=== PATIENT | male | born 1995 | race Caucasian/White ===

== ENCOUNTER 2024-05-06 14:08 | Outpatient (AMB) | payer OTHER, SELFPAY ==
--- NOTE | 2024-05-06 14:09 | MHC.OFFVIS ---
Vital Signs 05/06/24 14:10 Height 5 ft 7 in Weight 163 lb 5.8 oz BMI 25.6 BP 140/88 H Blood Pressure Location Lt brachial Position Standing Pulse 97 Pulse Source Pulse Oximeter Intake Visit Reasons: ankylosing spondylitis//RECORDS RECEIVED Intake Note: Patient present today for ankylosing spondylitis office visit. Web Operations Administrator Required: No Accompanied by: Self / Same As Patient Allergies No Known Allergies Allergy (Verified 05/06/24 14:15) Medication List - Last Reconciled 05/06/24 by Jj Saba MD acetaminophen (Tylenol) 325 mg PO QID PRN adalimumab (Humira(CF)) 40 mg subcut Q2W folic acid 1 mg PO DAILY methotrexate sodium 2.5 mg PO QWEEK multivitamin 1 tab PO DAILY HPI Comments Details: Since staring MTX in December 2023 his hand pain has resolved. He has been on humira weekly SC, which improved his stools - more solid. No new joint swelling, dactylitis or joint stiffness. No new back pain. IBD is controlled. [facility] Family History Mother Crohn disease Ankle ankylosis Father No problems noted. Review of Systems Const All systems reviewed & are unremarkable except as noted in HPI and below Physical Exam Vital Signs: Last Vital Signs Pulse 97 05/06/24 14:10 BP 140/88 H 05/06/24 14:10 BMI result Body Mass Index 25.6 Const General: healthy appearing and comfortable Resp Effort & Inspection: normal respiratory effort Auscultation: clear to auscultation bilaterally Cardio Rate: regular rate Rhythm: regular rhythm Heart sounds: S1 normal heart sound present and S2 normal heart sound present Extrem Other: Nontender joints. No synovitis. Good ROM of all joints. Good cervical spine ROM and lumbar flexion. Assessment & Plan Assessment & Plan (1) Ankylosing spondylitis: Comment: Controlled on current regimen Code(s): M45.9 - Ankylosing spondylitis of unspecified sites in spine Category: Medical Plan: Continue MTX weekly po Continue FA 1 mg daily Decrease frequency of Humira to every other week SC instead of weekly Labs for disease and drug monitoring due today. (2) Other dedicated intermodal truck driver (current) drug therapy: Code(s): Z79.899 - Other dedicated intermodal truck driver (current) drug therapy Category: Medical Plan: See above Orders: Orders Alanine Aminotransferase Today M45.9 - Ankylosing spondylitis of unspecified sites in spine, Z79.899 - Other group home (current) drug therapy C Reactive Protein Today M45.9 - Ankylosing spondylitis of unspecified sites in spine, Z79.899 - Other group home (current) drug therapy Creatinine Today M45.9 - Ankylosing spondylitis of unspecified sites in spine, Z79.899 - Other group home (current) drug therapy Aspartate Amino Transferase Today M45.9 - Ankylosing spondylitis of unspecified sites in spine, Z79.899 - Other dedicated intermodal truck driver (current) drug therapy Complete Blood Count Auto Diff Today M45.9 - Ankylosing spondylitis of unspecified sites in spine, Z79.899 - Other group home (current) drug therapy Erythrocyte Sedimentation Rate Today M45.9 - Ankylosing spondylitis of unspecified sites in spine, Z79.899 - Other group home (current) drug therapy Medications: New Humira(CF) (adalimumab) 40 mg (0.4 mL) subcut Q2W 2 ea 2RF NS Coding Level of Care Code Est Pt Level 4 (13204) Complex EM visit Add On G2211 Diagnoses Ankylosing spondylitis M45.9 Other dedicated intermodal truck driver (current) drug therapy Z79.890
[2024-05-06 14:10] VITALS: BP 140/88; PULSE 97; BMI 25.6
== END 2024-05-06 14:41 | disposition home or self-care (01) ==
PROVIDERS: PCP Internal Medicine; Visit Provider Internal Medicine Rheumatology
DX: M45.9 Ankylosing spondylitis of unspecified sites in spine (principal); Z79.899 Other long term (current) drug therapy
CPT/HCPCS: 99214; G2211

== ENCOUNTER → 2024-05-06 14:08 | Outpatient (BNVA) | payer OTHER, SELFPAY | PROVIDERS: PCP Internal Medicine; Visit Provider Internal Medicine Rheumatology | DX: M45.9 Ankylosing spondylitis of unspecified sites in spine (principal); Z79.899 Other long term (current) drug therapy | CPT/HCPCS: 99212 ==

== ENCOUNTER 2024-05-07 12:27 | Outpatient (REF) | payer OTHER, SELFPAY ==
[2024-05-07 13:06] LABS: MANUAL DIFF FLAG NO
[2024-05-07 13:11] LABS: Basophils Percent Auto 0.5 % (0-2); Eosinophils Percent Auto 0.3 % (0-4); Hematocrit 46.8 % (42.0-52.0); Hemoglobin 15.7 g/dl (14.0-18.0); Imm Gran Abs Auto 0.01 X10*3/uL (0.00-0.03); Imm Gran Pct Auto 0.2 % (0.0-0.4); Lymphocytes Absolute Auto 2.1 X10*3/uL (1.2-4.9); Lymphocytes Percent Auto 36.3 % (20-40); Mean Corpuscular HGB Conc 33.5 g/dl (31.0-36.0); Mean Corpuscular Hemoglobin 30.5 pg (27.0-33.0); Mean Corpuscular Volume 91.1 fL (80.0-98.0); Mean Platelet Volume 9.4 fL (9.4-12.4); Monocytes Absolute Auto 0.4 X10*3/uL (0.1-1.2); Monocytes Percent Auto 7.1 % (2-11); Neutrophils Absolute Auto 3.2 x10*3/uL (2.0-8.3); Neutrophils Percent Auto 55.6 % (45-73); Platelet Count 300 X10*3/uL (160-400); Red Blood Count 5.14 X10*6/uL (4.60-5.80); Red Cell Distribution Width 12.3 % (11.0-16.0); White Blood Count 5.8 X10*3/uL (4.8-10.8)
[2024-05-07 13:22] LABS: Alanine Aminotransferase 15 U/L (0-40); Aspartate Amino Transferase 20 U/L (5-37); C Reactive Protein < 0.10 mg/dL (< or = 0.50); Estimated Glomerular Filt Rate > 60
[2024-05-07 13:51] LABS: Erythrocyte Sedimentation Rate 2 MM/HR (0-15)
== END 2024-05-07 12:28 | disposition home or self-care (01) ==
LOC: HO.10HDL 12:27
PROVIDERS: Visit Provider Internal Medicine Rheumatology
DX: M45.9 Ankylosing spondylitis of unspecified sites in spine (principal); Z79.899 Other long term (current) drug therapy
CPT/HCPCS: 36415; 82565; 84450; 84460; 85025; 85652; 86140

== ENCOUNTER 2024-07-14 12:11 | Outpatient (REF) | payer OTHER, SELFPAY ==
--- OUTSIDE RECORDS SUMMARY | 2024-07-14 14:06 | XMS_ITS | Clinical Summary ---
Author Organization [facility] Address [address] [place] [address] Care Team Providers Care Residential Sales Consultant Name Role Phone Nikolai Hartmann MD Primary Care Provider [phone] Surgical History Surgery Date Site/Laterality Comments WISDOM TOOTH EXTRACTION PROCEDURE: HISTORICAL WISDOM TEETH EXTRACTION Medical History Medical History Date Comments Vitamin D deficiency 04/21/2019 DX:Vitamin D deficiency GERD (gastroesophageal reflu x disease) 04/21/2019 DX:GERD (gastroesophageal re flux disease) Anxiety 04/21/2019 DX:Anxiety Ankylosing spondylitis (CMS/HCC) 12/29/2018 DX:Ankylosing spondylitis (HCC) Bilateral temporomandibular joint pain 12/29/2018 DX:Bilateral temporomandibul ar joint pain Tinnitus 12/29/2018 DX:Tinnitus Marijuana use 04/21/2019 DX:Marijuana use ; COMMENT: 2018 Daily Family History Medical History Relation Name Comments Coronary artery disease Father Hype rtension, Hyperlipidemia, Hearing Loss Diabetes Mother Hypertension,Os teoarthritis-bilateral hip replacement in her 50 Colon cancer Neg Hx Crohn's disease Neg Hx Ulcerative colitis Neg Hx Relation Name Status Comments Father Mother Social History Tobacco Use Types Packs/Day Years Used Date Smoking Tobacco: Never Smokeless Tobacco: Never Alcohol Use Standard Drinks/Week Comments No 0 (1 standard drink = 0.6 oz pur e alcohol) Sex and Gender Information Value Date Recorded Sex Assigned at Not on file Gender Identity Not on file Sexual Orientation Not on file Obstetrics History Last Filed Vital Signs Vital Sign Reading Time Taken Comments Blood Pressure 136/71 01/14/2024 12:34 PM EDT R Arm Pulse 115 01/14/2024 12:34 PM EDT Temperature - - Respiratory Rate - - Oxygen Saturation - - Inhaled Oxygen Concentration - - Weight 74.3 kg (163 lb 11.2 oz) 024 12:34 PM EDT Height 172.7 cm (5' 8 ) 01/14/2024 12:3 4 PM EDT Body Mass Index 24.89 01/14/2024 12:34 PM EDT Plan of Treatment Upcoming Encounters Date Type Department Care Team (Late st Contact Info) Description 01/17/2025 2:00 PM EDT Office Visit Internal Medicine - [address] [address] Nikolai Hartmann MD [address] [place] [address] Health Maintenance Due Date Last Done Comments COVID-19 Vaccine (#1) 1998 Depression Screening 06/01/2022 HIV Screening 06/01/2022 Hepatitis C Screening 06/01/2022 Social Influencers of Health Screening 06/01/2022 Influenza Vaccine (#1) 2024 Cholesterol Screening (Lipid Panel) 01/13/2029 01/14/2024 DTaP,Tdap,and Td Vaccines (8 - Td or Tdap) 02/16/2030 02/17/2020, 02/03/2006, 03/05/1999, Additional history exists Hepatitis B Vaccines Completed 03/29/1994, 1993, 1993 HIB Vaccines Completed 09/27/1994, 12/21, 1993, Additional history exists MMR Vaccines Completed 11/01/1997, 09/27/1994 IPV Vaccines Completed 03/05/1999, 12/21, 09/27/1994, Additional history exists Pneumococcal Vaccine: Pediatrics (0 to 5 Years) and At-Risk Patients (6 to 64 Years) Aged Out 11/24/2020, 05/12/2020 No longer eligibl e based on patient's age to complete this topic HPV Vaccines Aged Out No longer eligi ble based on patient's age to complete this topic Hepatitis A Vaccines Aged Out No long er eligible based on patient's age to complete this topic Meningococcal ACWY Vaccine Aged Out N o longer eligible based on patient's age to complete this topic RSV Immunization Patients Under 20 months Aged Out No longer eligible based on patient's age to complete this topic Varicella Vaccines Aged Out No longer eligible based on patient's age to complete this topic Care Teams Residential Sales Consultant Relationship Specialty Start Date End Date Nikolai Hartmann MD PCP - General Internal Medicine 02/17/20
[2024-07-15 08:18] LABS: HBc Num1 0.08 S/CO (0.00-0.79); HBsAGNum1 0.51 S/CO (0.00-0.99); Hepatitis B Core Antibody Nonreactive (Nonreactive); Hepatitis B Surface Antigen Negative (Negative); ~HepC Num1 0.24 S/CO (0.00-0.79); ~Hepatitis C Antibody Nonreactive (Nonreactive)
[2024-07-15 09:34] LABS: HBS Num3 10.53 mIU/mL (0-7.99); ~Hepatitis B Surface Antibody GRAYZONE (Nonreactive)
[2024-07-17 16:03] LABS: TS Negative Control Passed; TS Panel A 0; TS Panel B 3; TS Positive Control Passed; TSpotTB Negative (Negative)
== END 2024-07-14 12:12 | disposition home or self-care (01) ==
LOC: HO.10HDL 12:11
PROVIDERS: Visit Provider Internal Medicine Rheumatology
DX: Z79.899 Other long term (current) drug therapy (principal)
CPT/HCPCS: 36415; 86481; 86704; 86706; 86803; 87340

== ENCOUNTER 2024-08-05 13:43 | Outpatient (AMB) | payer OTHER, SELFPAY ==
--- OUTSIDE RECORDS SUMMARY | 2024-08-05 13:49 | XMS_ITS | Clinical Summary ---
Author Organization [facility] ity Address [address] [place] [address] Care Team Providers Care Forklift Technician Name Role Phone Nikolai Hartmann MD Primary Care Provider [phone] Allergies No known active allergies Medications calcium carbonate-vitamin D 500 mg-5 mcg (200 unit) per tablet Take 500 mg by mouth 2 times daily. Active adalimumab (Humira,CF, Pen) 40 mg/0.4 mL pen Inject 0.4 mL into the muscle every 14 days. 0 Active loratadine (CLARITIN) 10 mg tablet Take 1 tablet (10 mg total) by mouth 1 (one) time each day. 2 Active medical marijuana PELOTA MAKER med Class: Historic Active methotrexate (Xatmep) 2.5 mg/mL Take by mouth. Active multivit-min/foli c/vit K/lycop (MEN'S MULTIVITAMIN ORAL) Take by mouth. Active Active Problems Problem Noted Date Diagnosed Date Crohn's disease of colon without complication Overview (07/22/2024): Inflammation of the rectosigmoid colon and cecum. The rest of the colon is spared Anxiety 04/21/2019 GERD (gastroesophageal reflux disease) 9 Vitamin D deficiency 04/21/2019 Ankylosing spondylitis 12/29/2018 Bilateral temporomandibular joint pain 9 Tinnitus 12/29/2018 Encounters Date Type Department Care Team Description 07/28/2024 Telephone Internal Medicine - [facility] [address] [place] [address] Nikolai Hartmann MD Faxed Order ([place]) from Last 3 Months Immunizations Name Administration Dates Next Due DTaP (Infanrix) 6wks to less than 7yo ,01/08/1995,1993,10/29,1993 [id number] (Pentacel) 2mo to less than 5yo 09/27/1994,1993,1993,08/28 Hepatitis B Pediatric (Enger ix B; Recombivax HB) to less than 20 yo 03/29/1994,1993,1993 IPV Inactivated polio (Ipol) 6wks and older 03/05/1999,01/08/1995,1993,08/28 MMR, measles mumps and rubel la Live (Priorix; M-M-R II) 12mo and older 11/01/1997,09/27/1994 Pneumococcal polysaccharide 23 valent (Pneumovax 23) 2yo and older 11/24/2020,05/12/2020 Tdap Tetanus diptheria acell ular pertussis (Boostrix; Adacel) 7yo and older 02/17/2020,02/03/2006 Surgical History Surgery Date Site/Laterality Comments WISDOM [...] Recorded Sex Assigned at Not on file Legal Sex Male 12:53 PM EST Gender Identity Not on file Sexual Orientation [...] PM EDT Office Visit Internal Medicine - [address] [address] Nikolai Hartmann MD [address] [place] [address] Health Maintenance Due Date Last Done Comments COVID-19 Vaccine (#1) 1998 Depression Screening 06/01/2022 HIV Screening 06/01/2022 Hepatitis C Screening 06/01/2022 Social Influencers of Health Screening 06/01/2022 Influenza Vaccine (#1) 2024 Cholesterol Screening (Lipid Panel) 01/13/2029 01/14/2024, 01/14/2024 DTaP,Tdap,and Td Vaccines (8 - Td [...] patient's age to complete this topic Meningococcal B Vacine Aged Out No lo nger eligible based on patient's age to complete this topic RSV Immunization Patients Under 20 months Aged Out No longer eligible based on patient's age to complete this topic Varicella Vaccines Aged Out No longer eligible based on patient's age to complete this topic Procedures Procedure Name Priority Date/Time Associated Diagnosis Comments LIPID PANEL Routine 01/14/2024 from Last 3 Months or Most Recently Relevant to Health Maintenance Results * Lipid panel (01/14/2024) LDL/HDL Ratio 3 0 - 4 Triglycerides 62 0 - 150 mg/dL Cholesterol 139 0 - 200 mg/dL HDL 53 >=40 mg/dL LDL Cholesterol 74 0 - 100 mg/dL Blood Venous blood specimen / Unknown us Historical Provider LAB BLOOD ORDERABLES Cassidy l Result from Last 3 Months or Most Recently Relevant to Health Maintenance Care Teams Forklift Technician Relationship Specialty Start Date End Date Nikolai Hartmann MD PCP - General Internal Medicine 02/17/20
--- OUTSIDE RECORDS SUMMARY | 2024-08-05 13:49 | XMS_ITS | Encounter Summary ---
Author Organization [facility] Address [address] [place] [address] Care Team Providers Care Testing Specialist Name Role Phone Nikolai Hartmann MD Primary Care Provider [phone] Reason for Visit * Reason Onset Date Comments Faxed Order 07/28/2024 [facility] ntor Encounter Details Date Type Department Care Team ([facility] Contact Info) Description 07/28/2024 [facility] [address] [place] [phone] Nikolai Hartmann MD [address] [place] [address] Faxed Order ([facility]) Social History Tobacco Use Types Packs/Day Years Used Date Smoking Tobacco: Never Smokeless Tobacco: Never Alcohol Use Standard Drinks/Week Comments No 0 (1 standard drink = 0.6 oz pur e alcohol) Sex and Gender Information Value Date Recorded Sex Assigned at Not on file Legal Sex Male 12:53 PM EST Gender Identity Not on file Sexual Orientation Not on file documented as of this encounter Progress Notes * Kaylin Pang - 07/28/2024 1:03 PM EST Orders from [place] placed in Nikolai Hartmann MD bin. Please complete and fax back to [phone]. Thank you. documented in this encounter Plan of Treatment Upcoming Encounters Date Type Department Care Team ([facility] Contact Info) Description 01/17/2025 2:00 PM EDT Office Visit Internal Medicine - [facility] [address] [place] [address] Nikolai Hartmann MD [address] [place] [phone] documented as of this encounter Visit Diagnoses Not on filedocumented in this encounter Care Teams Testing Specialist Relationship Specialty Start Date End Date Nikolai Hartmann MD PCP - General Internal Medicine 02/17/20 documented as of this encounter
--- NOTE | 2024-08-05 14:01 | MHC.OFFVIS ---
Vital Signs 08/05/24 14:02 Height 5 ft 7 in Weight 164 lb 2 oz BMI 25.7 BP 130/72 Blood Pressure Location Lt brachial Position Sitting Pulse 122 H Pulse Source Pulse Oximeter Pulse Oximetry (%) 99 Oxygen Delivery Method Room Air Intake Visit Reasons: Follow up 3 mo Intake Note: Patient presents follow up. no concerns Allergies No Known Allergies Allergy (Verified 08/05/24 14:04) HPI HPI Follow up 3 mo: Details: He had an episode of right elbow pain and left knee pain. He woke up with it 1 morning, which subsided throughout the day. He denies morning stiffness. No back pain. No joint swelling. No recent infections. He has been taking Humira every other week from weekly. Crohn's disease is controlled. [facility] Family History Mother Crohn disease Ankle ankylosis Father No problems noted. Review of Systems Const All systems reviewed & are unremarkable except as noted in HPI and below Physical Exam Vital Signs: Last Vital Signs Pulse 122 H 08/05/24 14:02 BP 130/72 08/05/24 14:02 Pulse Ox 99 08/05/24 14:02 Oxygen Delivery Method Room Air 08/05/24 14:02 BMI result Body Mass Index 25.7 Const Other: General: Comfortable CVS: RRR Respiratory: clear to auscultation bilaterally. Good respiratory effort Skin: No lesions seen MSK: No tenderness of any joint. No synovitis. Good range of motion of upper extremities and lower extremities. Good cervical range of motion. Right SI joint tender on palpation. Positive right INDER. Good lumbar flexion. Assessment & Plan Assessment & Plan (1) Ankylosing spondylitis: Comment: Controlled on current regimen with reduction in Humira frequency to every other week. I will monitor right SI joint as he had tenderness on exam with positive INDER but reports no clinical symptoms associated with back pain or stiffness. Code(s): M45.9 - Ankylosing spondylitis of unspecified sites in spine Category: Medical Plan: Continue MTX weekly po Continue FA 1 mg daily Continue Humira every other week SC Labs for disease and drug monitoring on high-risk medication due today. (2) Other terminal makeup operator (current) drug therapy: Code(s): Z79.899 - Other terminal makeup operator (current) drug therapy Category: Medical Plan: See above Orders: Orders Creatinine Today Z79.60 - retirement (current) use of unspecified immunomodulators and immunosuppressants Alanine Aminotransferase Today Z79.60 - retirement (current) use of unspecified immunomodulators and immunosuppressants Aspartate Amino Transferase Today Z79.60 - middle or intermediate school principal (current) use of unspecified immunomodulators and immunosuppressants C Reactive Protein Today M45.9 - Ankylosing spondylitis of unspecified sites in spine Erythrocyte Sedimentation Rate Today M45.9 - Ankylosing spondylitis of unspecified sites in spine Complete Blood Count Auto Diff Today Z79.60 - middle or intermediate school principal (current) use of unspecified immunomodulators and immunosuppressants Medications: Refilled methotrexate sodium Take 4 tablets once weekly 10 mg (4 x 2.5 mg) PO QWEEK 16 tabs 2RF M45.9 - Ankylosing spondylitis of unspecified sites in spine, Z79.899 - Other group home (current) drug therapy Coding Level of Care Code Est Pt Level 4 (93518) Complex EM visit Add On G2211 Diagnoses Ankylosing spondylitis M45.9 Other terminal makeup operator (current) drug therapy Z79.899
[2024-08-05 14:02] VITALS: BP 130/72; PULSE 122; O2SAT 99; BMI 25.7
== END 2024-08-05 14:29 | disposition home or self-care (01) ==
PROVIDERS: PCP Internal Medicine; Visit Provider Internal Medicine Rheumatology
DX: M45.9 Ankylosing spondylitis of unspecified sites in spine (principal); Z79.899 Other long term (current) drug therapy
CPT/HCPCS: 99214; G2211

== ENCOUNTER 2024-08-05 13:43 | Outpatient (REF) | payer OTHER, SELFPAY ==
--- OUTSIDE RECORDS SUMMARY | 2024-08-05 14:40 | XMS_ITS | Encounter Summary ---
Author Organization [facility] Address [address] [place] [address] Care Team Providers Care News Department Intern Name Role Phone Nikolai Hartmann MD Primary Care Provider [phone] Reason for Visit * Reason Onset Date Comments Faxed Order 07/28/2024 [facility] ntor Encounter Details Date Type Department Care Team ([facility] Contact Info) Description 07/28/2024 [facility] [address] [place] [phone] Nikolai Hartmann MD [address] [place] [phone] Faxed Order ([facility]) Social History Tobacco Use Types Packs/Day [...] - 07/28/2024 1:03 PM EST Orders from [place] placed in Nikolai Hartmann MD bin. Please complete and fax back to [phone]. Thank you. documented in this encounter Plan of Treatment Upcoming Encounters Date Type Department Care Team ([facility] Contact Info) Description 01/17/2025 2:00 PM EDT Office Visit Internal Medicine - [facility] [address] [place] [address] Nikolai Hartmann MD [address] [place] [address] documented as of this encounter Visit Diagnoses Not on filedocumented in this encounter Care Teams News Department Intern Relationship Specialty Start Date End Date Nikolai Hartmann MD PCP - General Internal Medicine 02/17/20 documented as of this encounter
--- OUTSIDE RECORDS SUMMARY | 2024-08-05 14:40 | XMS_ITS | Clinical Summary ---
Author Organization [facility] ity Address [address] [place] [address] Care Team Providers Care Critical Care Nurse Practitioner Name Role Phone Nikolai Hartmann MD Primary Care Provider [phone] Allergies No known active allergies Medications calcium [...] time each day. 2 Active medical marijuana [employer]LECTION CLERK med Class: Historic Active methotrexate (Xatmep) 2.5 [...] Telephone Internal Medicine - [facility] [address] [place] [address] Nikolai Hartmann MD Faxed Order ([place]) from Last 3 Months Immunizations Name Administration Dates Next Due DTaP (Infanrix) 6wks to less than 7yo ,01/08/1995,1993,10/29,1993 [id number] (Pentacel) 2mo to less than 5yo 09/27/1994,1993,1993,08/28 [...] PM EDT Office Visit Internal Medicine - [address] [address] Nikolai Hartmann MD [address] [place] [address] Health Maintenance Due Date Last Done Comments [...] Recently Relevant to Health Maintenance Care Teams Critical Care Nurse Practitioner Relationship Specialty Start Date End Date Nikolai Hartmann MD PCP - General Internal Medicine 02/17/20
[2024-08-05 17:36] LABS: MANUAL DIFF FLAG NO
[2024-08-05 17:41] LABS: Basophils Percent Auto 0.4 % (0-2); Eosinophils Percent Auto 0.2 % (0-4); Hematocrit 45.5 % (42.0-52.0); Hemoglobin 15.4 g/dl (14.0-18.0); Imm Gran Abs Auto 0.01 X10*3/uL (0.00-0.03); Imm Gran Pct Auto 0.2 % (0.0-0.4); Lymphocytes Absolute Auto 1.5 X10*3/uL (1.2-4.9); Lymphocytes Percent Auto 28.9 % (20-40); Mean Corpuscular HGB Conc 33.8 g/dl (31.0-36.0); Mean Corpuscular Hemoglobin 30.7 pg (27.0-33.0); Mean Corpuscular Volume 90.6 fL (80.0-98.0); Mean Platelet Volume 10.2 fL (9.4-12.4); Monocytes Absolute Auto 0.3 X10*3/uL (0.1-1.2); Monocytes Percent Auto 6.5 % (2-11); Neutrophils Absolute Auto 3.2 x10*3/uL (2.0-8.3); Neutrophils Percent Auto 63.8 % (45-73); Platelet Count 291 X10*3/uL (160-400); Red Blood Count 5.02 X10*6/uL (4.60-5.80); Red Cell Distribution Width 12.1 % (11.0-16.0); White Blood Count 5.1 X10*3/uL (4.8-10.8)
[2024-08-05 17:57] LABS: Alanine Aminotransferase 15 U/L (0-40); Aspartate Amino Transferase 20 U/L (5-37); C Reactive Protein < 0.10 mg/dL (< or = 0.50); Estimated Glomerular Filt Rate > 60
[2024-08-05 18:27] LABS: Erythrocyte Sedimentation Rate 1 MM/HR (0-15)
== END 2024-08-05 13:44 | disposition home or self-care (01) ==
LOC: HO.HKASLDS 13:43
PROVIDERS: PCP Internal Medicine; Visit Provider Internal Medicine Rheumatology
DX: M45.9 Ankylosing spondylitis of unspecified sites in spine (principal); Z79.60 Long term (current) use of unspecified immunomodulators and immunosuppressants; Z79.899 Other long term (current) drug therapy
CPT/HCPCS: 36415; 82565; 84450; 84460; 85025; 85652; 86140; 99212

== ENCOUNTER 2024-11-03 13:13 | Outpatient (AMB) | payer OTHER, SELFPAY ==
[2024-11-03 13:10] VITALS: BP 150/90; PULSE 111; O2SAT 97; BMI 25.8
--- NOTE | 2024-11-03 13:10 | A.OFFVIS_ITS ---
Vital Signs 11/03/24 13:10 Height 5 ft 7 in Weight 165 lb BMI 25.8 BP 150/90 H Blood Pressure Location Rt brachial Position Sitting Pulse 111 H Pulse Source Pulse Oximeter Pulse Oximetry (%) 97 Oxygen Delivery Method Room Air Comment 120/80 bp before left Intake Visit Reasons: 3 Months Intake Note: Patient present today for ankylosing spondylitis office visit. Allergies No Known Allergies Allergy (Verified 11/03/24 13:10) HPI HPI 3 Months: Details: He has pain and stiffness in knees, elbows and shoulders today. Usually joint pain lasts 2 days. He has episodes at least once a month. Buttocks pain when in car for more than 2 hours. No joint swelling. [facility] Family History Mother Crohn disease Ankle ankylosis Father No problems noted. Physical Exam Vital Signs: Last Vital Signs Pulse 111 H 11/03/24 13:10 BP 150/90 H 11/03/24 13:10 Pulse Ox 97 11/03/24 13:10 Oxygen Delivery Method Room Air 11/03/24 13:10 BMI result Body Mass Index 25.8 Const Other: General: Comfortable CVS: RRR Respiratory: clear to auscultation bilaterally. Good respiratory effort Skin: No lesions seen MSK: No tenderness of any joint. No synovitis. Normal range of motion of upper extremities and lower extremities. He has pain in his right shoulder and elbows with range of motion. Good cervical range of motion. Nontender SI joints. Good lumbar flexion. Modified Gissel's test 11/03/2024: 4 cm 10/31/2020: 3.5 cm 04/06/2020: 4 cm 03/08/2020: 4 cm 12/28/2019: 2.7 cm off of meloxicam 08/2019: 4 cm 07/2018: 4.7 cm 04/2018: 2 cm Assessment & Plan Assessment & Plan (1) Ankylosing spondylitis: Comment: He is experiencing episodic joint pain and stiffness lasting a few days, self- limited monthly. This likely represents activity from inflammatory arthritis since he has reduced his frequency of Humira from weekly to every 14 days. We discussed next steps for optimizing his immunosuppressive regimen. He does not like doing Humira injections weekly. I will optimize his methotrexate dose. Rheumatology history: Sacroiliitis left worse than right on x-ray 2018. Presenting with inflammatory back pain with morning stiffness and nocturnal pain, which improved on meloxicam (d/c 10/2019 due to diagnosis Crohn's disease presenting with bloody stools). MTX 12/2023-. Humira 02/2020 changed to weekly 08/2023 due to development of peripheral inflammatory arthritis. Prednisone caused side effect of irritability and insomnia. Code(s): M45.9 - Ankylosing spondylitis of unspecified sites in spine Category: Medical Qualifiers: Ankylosing spondylitis location: multiple sites in spine Qualified Code(s): M45.0 - Ankylosing spondylitis of multiple sites in spine Plan: Increase methotrexate to 15 mg once weekly Continue FA 1 mg daily Continue Humira every other week SC Labs for disease and drug monitoring on high-risk medication due today. He will follow up with GI for surveillance colonoscopy Return to clinic in 3 months (2) Other nursing home (current) drug therapy: Code(s): Z79.899 - Other nursing home (current) drug therapy Category: Medical Plan: See above Orders: Orders Alanine Aminotransferase Today Z79.60 - longterm (current) use of unspecified immunomodulators and immunosuppressants Aspartate Amino Transferase Today Z79.60 - terminal operations supervisor (current) use of unspecified immunomodulators and immunosuppressants Creatinine Today Z79.60 - longterm (current) use of unspecified immunomodulators and immunosuppressants Erythrocyte Sedimentation Rate Today Z79.899 - Other nursing home (current) drug therapy C Reactive Protein Today Z79.899 - Other nursing home (current) drug therapy Complete Blood Count Auto Diff Today Z79.60 - terminal operations supervisor (current) use of unspecified immunomodulators and immunosuppressants Medications: Changed From methotrexate sodium Take 4 tablets once weekly 10 mg (4 x 2.5 mg) PO QWEEK 16 tabs 2RF M45.9 - Ankylosing spondylitis of unspecified sites in spine, Z79.899 - Other nursing home (current) drug therapy To methotrexate sodium Take 6 tablets once weekly 15 mg (6 x 2.5 mg) PO QWEEK 72 tabs 2RF 12 weeks M45.9 - Ankylosing spondylitis of unspecified sites in spine, Z79.899 - Other terminal press operator (current) drug therapy Refilled folic acid Take 1 tablet daily 1 mg PO DAILY 90 tabs 3RF M45.9 - Ankylosing spondylitis of unspecified sites in spine, Z79.899 - Other terminal press operator (current) drug therapy Coding Level of Care Code Est Pt Level 4 (17979) Complex EM visit Add On G2211 Diagnoses Ankylosing spondylitis of multiple sites in spine M45.0 Ankylosing spondylitis location: multiple sites in spine Other nursing home (current) drug therapy Z79.899
--- OUTSIDE RECORDS SUMMARY | 2024-11-03 13:27 | XMS_ITS | Clinical Summary ---
Author Organization [facility] Address [address] [place] [address] Care Team Providers Care Control System Manager Name Role Phone Nikolai Hartmann MD Primary Care Provider [phone] Allergies No known active allergies Medications calcium [...] time each day. 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 Active multivit-min/foli c/vit K/lycop (MEN'S MULTIVITAMIN ORAL) Take by mouth. Active Active Problems Problem Noted Date Diagnosed Date Crohn's disease of colon wit hout complication ([facility] V24, [facility] V28) 01/13/2020 Overview (07/22/2024): Inflammation of the rectosigmoid colon and cecum. The rest of the colon is spared Anxiety 04/21/2019 GERD (gastroesophageal reflux disease) 9 Vitamin D deficiency 04/21/2019 Ankylosing spondylitis ([facility] V24, [facility] V28 ) 12/29/2018 Bilateral temporomandibular joint pain 9 Tinnitus 12/29/2018 Immunizations Name Administration Dates Next Due DTaP (Infanrix) 6wks to less than 7yo ,01/08/1995,1993,10/29,1993 [id number] (Pentacel) 2mo to less than 5yo 09/27/1994,1993,1993,08/28 [...] flux disease) Anxiety 04/21/2019 DX:Anxiety Ankylosing spondylitis ([facility] V24, [facility] V28) 12/29/2018 DX:Ankylosing spondylitis (H CC) Bilateral temporomandibular joint pain 12/29/2018 DX:Bilateral temporomandibul [...] PM EDT Office Visit Internal Medicine - [address] [address] Nikolai Hartmann MD [address] [place] [id number] Health Maintenance Due Date Last Done Comments COVID-19 Vaccine (#1) 1998 Depression Screening 06/01/2022 HIV Screening 06/01/2022 Hepatitis C Screening 06/01/2022 Social Influencers of Health Screening 06/01/2022 Influenza Vaccine (Season Ended) 2025 Cholesterol Screening (Lipid Panel) 01/13/2029 01/14/2024, 01/14/2024 [...] age to complete this topic Meningococcal B Vaccine Aged Out No l onger eligible based on patient's age to complete [...] mg/dL Blood Venous blood specimen / Unknown [facility] Provider LAB BLOOD ORDERABLES Cassidy l Result from Last 3 Months or Most Recently Relevant to Health Maintenance Insurance [facility] [employer] Care Teams Control System Manager Relationship Specialty Start Date End Date Nikolai Hartmann MD PCP - General Internal Medicine 02/17/20
== END 2024-11-03 13:45 | disposition home or self-care (01) ==
LOC: HO.RHES 13:14
PROVIDERS: PCP Internal Medicine; Visit Provider Internal Medicine Rheumatology
DX: M45.0 Ankylosing spondylitis of multiple sites in spine (principal); Z79.899 Other long term (current) drug therapy
CPT/HCPCS: 99214; G2211

== ENCOUNTER 2024-11-03 13:13 | Outpatient (REF) | payer OTHER, SELFPAY ==
--- OUTSIDE RECORDS SUMMARY | 2024-11-03 13:50 | XMS_ITS | Clinical Summary ---
Author Organization [facility] Address [address] [place] [address] Care Team Providers Care Dietitian Helper Name Role Phone Nikolai Hartmann MD Primary Care Provider [phone] Allergies No known active allergies Medications calcium [...] time each day. 2 Active medical marijuana CHAPLAINCY med Class: Historic Active methotrexate (Xatmep) 2.5 mg/mL Take by mouth. Active multivit-min/foli c/vit K/lycop (MEN'S MULTIVITAMIN ORAL) Take by mouth. Active Active Problems Problem Noted Date Diagnosed Date Crohn's disease of colon wit hout complication ([facility] V24, [facility] V28) 01/13/2020 Overview (07/22/2024): Inflammation of the rectosigmoid colon and cecum. The rest of the colon is spared Anxiety 04/21/2019 GERD (gastroesophageal reflux disease) 9 Vitamin D deficiency 04/21/2019 Ankylosing spondylitis ([facility] V24, [facility] V28 ) 12/29/2018 Bilateral temporomandibular joint pain 9 Tinnitus 12/29/2018 Immunizations Name Administration Dates Next Due DTaP (Infanrix) 6wks to less than 7yo ,01/08/1995,1993,10/29,1993 [id number] (Pentacel) 2mo to less than 5yo 09/27/1994,1993,1993,08/28 [...] flux disease) Anxiety 04/21/2019 DX:Anxiety Ankylosing spondylitis ([facility] V24, [facility] V28) 12/29/2018 DX:Ankylosing spondylitis (H CC) Bilateral [...] PM EDT Office Visit Internal Medicine - [address] [address] Nikolai Hartmann MD [address] [place] [phone] Health Maintenance Due Date Last Done Comments [...] mg/dL Blood Venous blood specimen / Unknown [facility] Provider LAB BLOOD ORDERABLES Cassidy l Result from Last 3 Months or Most Recently Relevant to Health Maintenance Insurance [facility] [employer] Care Teams Dietitian Helper Relationship Specialty Start Date End Date Nikolai Hartmann MD PCP - General Internal Medicine 02/17/20
[2024-11-03 18:12] LABS: MANUAL DIFF FLAG NO
[2024-11-03 18:26] LABS: Basophils Percent Auto 0.3 % (0-2); Eosinophils Percent Auto 0.3 % (0-4); Hematocrit 44.3 % (42.0-52.0); Hemoglobin 14.9 g/dl (14.0-18.0); Imm Gran Abs Auto 0.02 X10*3/uL (0.00-0.03); Imm Gran Pct Auto 0.2 % (0.0-0.4); Lymphocytes Absolute Auto 2.3 X10*3/uL (1.2-4.9); Lymphocytes Percent Auto 26.7 % (20-40); Mean Corpuscular HGB Conc 33.6 g/dl (31.0-36.0); Mean Corpuscular Hemoglobin 30.9 pg (27.0-33.0); Mean Corpuscular Volume 91.9 fL (80.0-98.0); Mean Platelet Volume 10.5 fL (9.4-12.4); Monocytes Absolute Auto 0.6 X10*3/uL (0.1-1.2); Monocytes Percent Auto 6.8 % (2-11); Neutrophils Absolute Auto 5.7 x10*3/uL (2.0-8.3); Neutrophils Percent Auto 65.7 % (45-73); Platelet Count 251 X10*3/uL (160-400); Red Blood Count 4.82 X10*6/uL (4.60-5.80); Red Cell Distribution Width 12.4 % (11.0-16.0); White Blood Count 8.6 X10*3/uL (4.8-10.8)
[2024-11-03 18:32] LABS: Alanine Aminotransferase 19 U/L (0-40); Aspartate Amino Transferase 24 U/L (5-37); C Reactive Protein < 0.10 mg/dL (< or = 0.50); Estimated Glomerular Filt Rate > 60
[2024-11-03 19:09] LABS: Erythrocyte Sedimentation Rate 2 MM/HR (0-15)
== END 2024-11-03 13:14 | disposition home or self-care (01) ==
LOC: HO.HKASLDS 13:13
PROVIDERS: PCP Internal Medicine; Visit Provider Internal Medicine Rheumatology
DX: M45.0 Ankylosing spondylitis of multiple sites in spine (principal); Z79.60 Long term (current) use of unspecified immunomodulators and immunosuppressants; Z79.899 Other long term (current) drug therapy
CPT/HCPCS: 36415; 82565; 84450; 84460; 85025; 85652; 86140; 99212

== ENCOUNTER 2025-02-08 13:21 | Outpatient (AMB) | payer OTHER, SELFPAY ==
--- NOTE | 2025-02-08 13:27 | MHC.OFFVIS ---
Vital Signs 02/08/25 13:29 Height 5 ft 7 in Weight 161 lb 8 oz BMI 25.3 BP 140/80 H Blood Pressure Location Rt brachial Position Sitting Pulse 125 H Pulse Source Pulse Oximeter Pulse Oximetry (%) 100 Oxygen Delivery Method Room Air Intake Visit Reasons: 3 Months Intake Note: Patient present today for ankylosing spondylitis office visit. Accompanied by: Self / Same As Patient Allergies No Known Allergies Allergy (Verified 02/08/25 13:29) HPI HPI 3 Months: Details: He is doing well. No joint swelling. Denies morning stiffness. Crohn's disease is controlled. He occasionally has GERD. He has a physical coming up February 24. [facility] Family History Mother Crohn disease Ankle ankylosis Father No problems noted. Physical Exam Vital Signs: Last Vital Signs Pulse 125 H 02/08/25 13:29 BP 140/80 H 02/08/25 13:29 Pulse Ox 100 02/08/25 13:29 Oxygen Delivery Method Room Air 02/08/25 13:29 BMI result Body Mass Index 25.3 Const Other: General: Comfortable CVS: RRR Respiratory: clear to auscultation bilaterally. Good respiratory effort Skin: No lesions seen MSK: No tenderness of any joint. No synovitis. Normal range of motion of upper extremities and lower extremities. Good cervical range of motion. Nontender SI joints. Good lumbar flexion. Modified Gissel's test 11/03/2024: 4 cm 10/31/2020: 3.5 cm 04/06/2020: 4 cm 03/08/2020: 4 cm 12/28/2019: 2.7 cm off of meloxicam 08/2019: 4 cm 07/2018: 4.7 cm 04/2018: 2 cm Assessment & Plan Assessment & Plan (1) Ankylosing spondylitis: Comment: Controlled on current regimen Rheumatology history: Sacroiliitis left worse than right on x-ray 2017. Presenting with inflammatory back pain with morning stiffness and nocturnal pain, which improved on meloxicam (d/c 10/2019 due to diagnosis Crohn's disease presenting with bloody stools). MTX 12/2023-. Humira 02/2020 changed to weekly 08/2023 due to development of peripheral inflammatory arthritis. Prednisone caused side effect of irritability and insomnia. Code(s): M45.9 - Ankylosing spondylitis of unspecified sites in spine Category: Medical Qualifiers: Ankylosing spondylitis location: multiple sites in spine Qualified Code(s): M45.0 - Ankylosing spondylitis of multiple sites in spine Plan: Continue methotrexate to 15 mg once weekly Continue FA 1 mg daily Continue Humira every other week SC Labs for disease and drug monitoring on high-risk medication due today. He will follow up with GI for surveillance colonoscopy Return to clinic in 3 months (2) Other continuous churn buttermaker (current) drug therapy: Code(s): Z79.899 - Other continuous churn buttermaker (current) drug therapy Category: Medical Plan: See above Orders: Orders Complete Blood Count Auto Diff Today Z79.899 - Other continuous churn buttermaker (current) drug therapy Creatinine Today Z79.899 - Other shelter (current) drug therapy C Reactive Protein Today Z79.899 - Other continuous churn buttermaker (current) drug therapy Alanine Aminotransferase Today Z79.899 - Other shelter (current) drug therapy Aspartate Amino Transferase Today Z79.899 - Other continuous churn buttermaker (current) drug therapy Erythrocyte Sedimentation Rate Today Z79.899 - Other shelter (current) drug therapy Medications: Changed From adalimumab (Humira(CF) Pen) inject one - 40 mg/0.4 mL pen every 2 weeks subcut 2 ea 3RF M45.9 - Ankylosing spondylitis of unspecified sites in spine To adalimumab (Humira(CF) Pen) 40 mg (0.4 mL) subcut Q14D 2 ea 5RF M45.9 - Ankylosing spondylitis of unspecified sites in spine Refilled methotrexate sodium Take 6 tablets once weekly 15 mg (6 x 2.5 mg) PO QWEEK 72 tabs 2RF 12 weeks M45.9 - Ankylosing spondylitis of unspecified sites in spine, Z79.899 - Other continuous churn buttermaker (current) drug therapy Coding Level of Care Code Est Pt Level 4 (58042) Complex EM visit Add On G2211 Diagnoses Ankylosing spondylitis of multiple sites in spine M45.0 Ankylosing spondylitis location: multiple sites in spine Other continuous churn buttermaker (current) drug therapy Z79.899
[2025-02-08 13:29] VITALS: BP 140/80; PULSE 125; O2SAT 100; BMI 25.3
--- OUTSIDE RECORDS SUMMARY | 2025-02-08 14:36 | XMS_ITS | Clinical Summary ---
Author Organization [address] [facility] Address [address] [place] [phone] Phone Care Team Providers Care Graphic Design Professor Name Role Phone Nikolai Hartmann MD Primary Care Provider [phone] Allergies No known active allergies Medications calcium [...] time each day. 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 Active multivit-min/foli c/vit K/lycop (MEN'S MULTIVITAMIN ORAL) Take by mouth. Active Active Problems Problem Noted Date Diagnosed Date Crohn's disease of colon wit hout complication ([facility] V24, [facility] V28) 01/13/2020 Overview (07/22/2024): Inflammation of the rectosigmoid colon and cecum. The rest of the colon is spared Anxiety 04/21/2019 GERD (gastroesophageal reflux disease) 9 Vitamin D deficiency 04/21/2019 Ankylosing spondylitis ([facility] V24, [facility] V28 ) 12/29/2018 Bilateral temporomandibular joint pain 9 Tinnitus 12/29/2018 Immunizations Name Administration Dates Next Due DTaP (Infanrix) 6wks to less than 7yo ,01/08/1995,1993,10/29,1993 [id number] (Pentacel) 2mo to less than 5yo 09/27/1994,1993,1993,08/28 [...] flux disease) Anxiety 04/21/2019 DX:Anxiety Ankylosing spondylitis ([facility] V24, [facility] V28) 12/29/2018 DX:Ankylosing spondylitis (H [...] Care Team (Late st Contact Info) Description 02/24/2025 4:00 PM EDT Office Visit Internal Medicine - [address] [address] Nikolai Hartmann MD [address] [place] [phone] Health Maintenance Due Date Last Done Comments COVID-19 Vaccine (#1) 1998 HIV Screening 06/01/2022 Hepatitis C Screening 06/01/2022 Social Influencers of Health Screening 06/01/2022 Depression Screening 06/23/2024 Influenza Vaccine (#1) 2025 Cholesterol Screening (Lipid Panel) 01/13/2029 01/14/2024, [...] 5 Years) and At-Risk Patients (6 to 49 Years) Aged Out 11/24/2020, 05/12/2020 No longer [...] mg/dL Blood Venous blood specimen / Unknown [facility] Provider LAB BLOOD ORDERABLES Cassidy l Result from Last 3 Months or Most Recently Relevant to Health Maintenance Insurance [facility] [employer] Care Teams Graphic Design Professor Relationship Specialty Start Date End Date Skalski, Nikolai S, MD [address] [place] [address] PCP - General Internal Medicine 01/12/25
--- OUTSIDE RECORDS SUMMARY | 2025-02-08 14:36 | XMS_ITS ---
Author Name [facility] Organization Unknown Care Team Organization Name Specialty Phone Email Start Date End Da te [facility] Nikolai Hartmann Primary Care 04/30/2022 02/09/20 24
== END 2025-02-08 13:59 | disposition home or self-care (01) ==
LOC: HO.RHES 13:21
PROVIDERS: PCP Internal Medicine; Visit Provider Internal Medicine Rheumatology
DX: M45.0 Ankylosing spondylitis of multiple sites in spine (principal); Z79.899 Other long term (current) drug therapy
CPT/HCPCS: 99214

== ENCOUNTER 2025-02-08 13:21 | Outpatient (REF) | payer OTHER, SELFPAY ==
[2025-02-08 18:35] LABS: MANUAL DIFF FLAG NO
[2025-02-08 18:56] LABS: Alanine Aminotransferase 17 U/L (0-40); Aspartate Amino Transferase 23 U/L (5-37); Estimated Glomerular Filt Rate > 60
[2025-02-08 19:07] LABS: Hematocrit 44.8 % (42.0-52.0); Hemoglobin 15.3 g/dl (14.0-18.0); Imm Gran Abs Auto 0.01 X10*3/uL (0.00-0.03); Imm Gran Pct Auto 0.2 % (0.0-0.4); Lymphocytes Absolute Auto 1.2 X10*3/uL (1.2-4.9); Mean Corpuscular HGB Conc 34.2 g/dl (31.0-36.0); Mean Corpuscular Hemoglobin 30.7 pg (27.0-33.0); Mean Corpuscular Volume 90.0 fL (80.0-98.0); NRBC Abs Auto 0.000 X10*3/uL (0.0-0.012); NRBC Pct Auto 0.0 /100WBC (0.0-0.2); Platelet Count 255 X10*3/uL (160-400); Red Blood Count 4.98 X10*6/uL (4.60-5.80); White Blood Count 4.8 X10*3/uL (4.8-10.8)
== END 2025-02-08 13:22 | disposition home or self-care (01) ==
LOC: HO.HKASLDS 13:21
PROVIDERS: PCP Internal Medicine; Visit Provider Internal Medicine Rheumatology
DX: M45.0 Ankylosing spondylitis of multiple sites in spine (principal); K50.90 Crohn's disease, unspecified, without complications; Z51.81 Encounter for therapeutic drug level monitoring; Z79.620 Long term (current) use of immunosuppressive biologic; Z79.631 Long term (current) use of antimetabolite agent; Z79.899 Other long term (current) drug therapy
CPT/HCPCS: 36415; 82565; 84450; 84460; 85025; 85652; 86140; 99212

== ENCOUNTER 2025-05-05 12:56 | Outpatient (REF) | payer OTHER, SELFPAY ==
[2025-05-05 17:39] LABS: MANUAL DIFF FLAG NO
[2025-05-05 17:56] LABS: Hematocrit 46.3 % (42.0-52.0); Hemoglobin 15.7 g/dl (14.0-18.0); Imm Gran Abs Auto 0.01 X10*3/uL (0.00-0.03); Imm Gran Pct Auto 0.2 % (0.0-0.4); Lymphocytes Absolute Auto 2.0 X10*3/uL (1.2-4.9); Mean Corpuscular HGB Conc 33.9 g/dl (31.0-36.0); Mean Corpuscular Hemoglobin 31.0 pg (27.0-33.0); Mean Corpuscular Volume 91.5 fL (80.0-98.0); NRBC Abs Auto 0.000 X10*3/uL (0.0-0.012); NRBC Pct Auto 0.0 /100WBC (0.0-0.2); Platelet Count 302 X10*3/uL (160-400); Red Blood Count 5.06 X10*6/uL (4.60-5.80); White Blood Count 4.2 X10*3/uL (4.8-10.8)
[2025-05-05 18:32] LABS: Alanine Aminotransferase 16 U/L (0-40); Aspartate Amino Transferase 24 U/L (5-37); Estimated Glomerular Filt Rate > 60
== END 2025-05-05 12:57 | disposition home or self-care (01) ==
LOC: HO.HKASLDS 12:56
PROVIDERS: PCP Internal Medicine; Visit Provider Internal Medicine Rheumatology
DX: M45.0 Ankylosing spondylitis of multiple sites in spine (principal); Z51.81 Encounter for therapeutic drug level monitoring; Z79.631 Long term (current) use of antimetabolite agent; Z79.620 Long term (current) use of immunosuppressive biologic; Z79.899 Other long term (current) drug therapy
CPT/HCPCS: 36415; 82565; 84450; 84460; 85025; 85652; 86140; 99212

== ENCOUNTER 2025-05-05 12:56 | Outpatient (AMB) | payer OTHER, SELFPAY ==
[2025-05-05 13:01] VITALS: BP 130/72; PULSE 115; O2SAT 99; BMI 24.9
--- NOTE | 2025-05-05 13:01 | MHC.OFFVIS ---
Vital Signs 05/05/25 13:01 Height 5 ft 7 in Weight 158 lb 11.725 oz BMI 24.9 BP 130/72 Blood Pressure Location Rt brachial Position Sitting Pulse 115 H Pulse Source Pulse Oximeter Pulse Oximetry (%) 99 Oxygen Delivery Method Room Air Intake Visit Reasons: 3 Months Intake Note: Patient present today for ankylosing spondylitis office visit. Accompanied by: Self / Same As Patient Allergies No Known Allergies Allergy (Verified 05/05/25 13:02) HPI HPI 3 Months: Details: He is doing well. No recent infections. No new joint pain. No new joint swelling. He quit smoking in April. He feels better and less foggy. [facility] Family History Mother Crohn disease Ankle ankylosis Father No problems noted. Physical Exam Vital Signs: Last Vital Signs Pulse 115 H 05/05/25 13:01 BP 130/72 05/05/25 13:01 Pulse Ox 99 05/05/25 13:01 Oxygen Delivery Method Room Air 05/05/25 13:01 BMI result Body Mass Index 24.9 Const Other: General: Comfortable CVS: RRR Respiratory: clear to auscultation bilaterally. Good respiratory effort Skin: No lesions seen MSK: No tenderness of any joint. No synovitis. Normal range of motion of upper extremities and lower extremities. Good cervical range of motion. Nontender SI joints. Good lumbar flexion. Modified Gissel's test 05/05/2025: 2.5 cm 11/03/2024: 4 cm 10/31/2020: 3.5 cm 04/06/2020: 4 cm 03/08/2020: 4 cm 12/28/2019: 2.7 cm off of meloxicam 08/2019: 4 cm 07/2018: 4.7 cm 04/2018: 2 cm Assessment & Plan Assessment & Plan (1) Ankylosing spondylitis: Comment: Controlled on current regimen. Modified Gissel's test has decreased. We discussed importance of having a regular exercise program. Rheumatology history: Sacroiliitis left worse than right on x-ray 2017. Presenting with inflammatory back pain with morning stiffness and nocturnal pain, which improved on meloxicam (d/c 10/2019 due to diagnosis Crohn's disease presenting with bloody stools). MTX 12/2023-. Humira 02/2020 changed to weekly 08/2023 due to development of peripheral inflammatory arthritis. Prednisone caused side effect of irritability and insomnia. Code(s): M45.9 - Ankylosing spondylitis of unspecified sites in spine Category: Medical Qualifiers: Ankylosing spondylitis location: multiple sites in spine Qualified Code(s): M45.0 - Ankylosing spondylitis of multiple sites in spine Plan: Continue methotrexate to 15 mg once weekly Continue FA 1 mg daily Continue Humira every other week SC Labs for disease and drug monitoring on high-risk medication due today Resume home exercise program for back strengthening. Exercises printed for patient. In the past he completed PT and has exercises at home, which I encouraged him to incorporate into his home exercise program. Minimum 30 minutes of exercises daily. He will follow up with GI for surveillance for Crohn's disease He reports he has not had a colonoscopy since initial diagnosis in 2018 or 2019. I have asked him to contact PCP for GI referral Return to clinic in 3 months (2) Other equipment operator intermodal yard (current) drug therapy: Code(s): Z79.899 - Other equipment operator intermodal yard (current) drug therapy Category: Medical Plan: See above Orders: Orders Complete Blood Count Auto Diff Today Z79.899 - Other equipment operator intermodal yard (current) drug therapy Alanine Aminotransferase Today Z79.899 - Other jail (current) drug therapy Aspartate Amino Transferase Today Z79.899 - Other jail (current) drug therapy Erythrocyte Sedimentation Rate Today Z79.899 - Other equipment operator intermodal yard (current) drug therapy Creatinine Today Z79.899 - Other jail (current) drug therapy C Reactive Protein Today Z79.899 - Other jail (current) drug therapy Medications: Refilled methotrexate sodium Take 6 tablets once weekly 15 mg (6 x 2.5 mg) PO QWEEK 72 tabs 2RF 12 weeks M45.9 - Ankylosing spondylitis of unspecified sites in spine, Z79.899 - Other equipment operator intermodal yard (current) drug therapy adalimumab (Humira(CF) Pen) 40 mg (0.4 mL) subcut Q14D 2 ea 5RF M45.9 - Ankylosing spondylitis of unspecified sites in spine Coding Level of Care Code Est Pt Level 4 (49570) Complex EM visit Add On G2211 Diagnoses Ankylosing spondylitis of multiple sites in spine M45.0 Ankylosing spondylitis location: multiple sites in spine Other equipment operator intermodal yard (current) drug therapy Z79.899
--- OUTSIDE RECORDS SUMMARY | 2025-05-05 16:07 | XMS_ITS | Clinical Summary ---
Author Organization [place] [address] [address] [facility] Address [address] [place] [phone] Phone Care Team Providers Care Processing Specialist Name Role Phone Nikolai Hartmann MD Primary Care Provider [phone] Allergies No known active allergies Medications calcium [...] time each day. 2 Active medical marijuana USER EXPERIENCE LEAD med Class: Historic Active methotrexate (Xatmep) 2.5 mg/mL Take by mouth. Active multivit-min/foli c/vit K/lycop (MEN'S MULTIVITAMIN ORAL) Take by mouth. Active Active Problems Problem Noted Date Diagnosed Date Crohn's disease of colon wit hout complication ([facility] V24, [facility] V28) 01/13/2020 Overview (07/22/2024): Inflammation of the rectosigmoid colon and cecum. The rest of the colon is spared Anxiety 04/21/2019 GERD (gastroesophageal reflux disease) 9 Vitamin D deficiency 04/21/2019 Ankylosing spondylitis ([facility] V24, [facility] V28 ) 12/29/2018 Bilateral temporomandibular joint pain 07/09/201 9 Tinnitus 12/29/2018 Immunizations Immunization Administration Dates Next Due DTaP (Infanrix) 6wks to less than 7yo ,01/08/1995,1993,10/29,1993 [id number] (Pentacel) 2mo to less than 5yo 09/27/1994,1993,1993,08/28 [...] flux disease) Anxiety 04/21/2019 DX:Anxiety Ankylosing spondylitis ([facility] V24, [facility] V28) 12/29/2018 DX:Ankylosing spondylitis (H CC) Bilateral [...] Care Team (Late st Contact Info) Description 06/01/2025 2:45 PM EST Office Visit Internal Medicine - [address] [phone] Nikolai Hartmann MD [address] [place] [address] Health Maintenance Due Date Last Done Comments COVID-19 Vaccine (#1) 1998 HPV Vaccines (1 - 3-dose SCDM series) 2020 HIV Screening 06/01/2022 Hepatitis C Screening 06/01/2022 Social Influencers of Health Screening 06/01/2022 Depression Screening 06/23/2024 Influenza Vaccine (#1) 2025 Cholesterol Screening (Lipid Panel) 01/13/2029 01/14/2024, 01/14/2024 DTaP,Tdap,and Td Vaccines (8 - Td or Tdap) 02/16/2030 02/17/2020, 02/03/2006, 03/05/1999, Additional history exists RSV Immunization Adult Patients (1 - 1-dose 75+ series) 2068 Hepatitis B Vaccines Completed 03/29/1994, 1993, 1993 [...] mg/dL Blood Venous blood specimen / Unknown [facility] Provider LAB BLOOD ORDERABLES Cassidy l Result from Last 3 Months or Most Recently Relevant to Health Maintenance Insurance [facility] Care Teams Processing Specialist Relationship Specialty Start Date End Date Nikolai Hartmann MD [address] [place] [id number] PCP - General Internal Medicine 01/12/25
== END 2025-05-05 13:23 | disposition home or self-care (01) ==
LOC: HO.RHES 12:57
PROVIDERS: PCP Internal Medicine; Visit Provider Internal Medicine Rheumatology
DX: M45.0 Ankylosing spondylitis of multiple sites in spine (principal); Z79.899 Other long term (current) drug therapy
CPT/HCPCS: 99214